=== PATIENT | female | born 1960 | race Caucasian/White ===

== ENCOUNTER 2016-12-28 19:21 | Emergency (ER) | payer BC ==
[~2016-12-28] VITALS: Ht 167.6 cm; Wt 88.4 kg
[~2016-12-28 19:21] MED LIST: AMOX TR-K CLV1 EAC4 PO; ASPIRIN81 M2 PO; CIPRO500 MG PO; FISH OIL SOFTG1 EAC2 PO; FLEXERIL10 MG PO; FLOMAX0.4 MG PO; LISINOPRIL10 MG PO; LISINOPRIL5 MG PO; LODINE400 MG PO; MOTRIN600 MG PO; MUCINEX1200 MG PO; MULTIVITAMIN1 EAC2 PO; NAPROSYN500 MG PO; NAPROXEN500 MG PO; OMEGA-3 FISH O1 EAC4 PO; ONE-A-DAY ESSE1 EAC1 PO; PROAIR RESPICL90 MCG IH; PROBIOTIC1 EAC1 PO; TURMERIC500 MG PO; ULTRAM50 MG PO; WELLBUTRIN SR150 MG PO
[2016-12-28 22:21] LABS: HEMATOCRIT 40.5 % (36.0-46.0); MCH 29.8 PG (29.0-34.0); MCHC 33.3 G/DL (30.0-36.0); MCV 89.4 FL (83-99); PLATELET COUNT 286 K/uL (156-360); RBC DIS.WIDTH-CV 12.7 % (11.8-14.6); RBC DIS.WIDTH-SD 41.9 % (39-53); RED BLOOD COUNT 4.53 M/uL (3.80-5.20); WHITE BLOOD COUNT 7.9 K/uL (4.1-10.2)
[2016-12-28 22:23] LABS: CHLORIDE 105 mEq/L (99-109); SODIUM 141 mEq/L (136-147)
[2016-12-28 22:25] LABS: GLUCOSE 95 mg/dL (70-99)
[2016-12-28 22:26] LABS: ANION GAP 10 MEQ/L (2-14)
[2016-12-28 22:29] LABS: GFR ESTIMATE (CALCULATED) > 59 mL/min/
[2016-12-28 22:30] LABS: UREA NITROGEN (BUN) 18 mg/dL (9-23)
[2016-12-28] MEDS ORDERED: NAPROXEN500 MG PO (22:31)
[2016-12-28 22:48] VITALS: BP 136/67
== END 2016-12-28 22:49 | disposition home or self-care (01) ==
LOC: RME 19:21 → EME 19:21 → RME 22:49
PROVIDERS: Physician Assistant
DX: M79.605 Pain in left leg (principal); R20.0 Anesthesia of skin; M79.672 Pain in left foot; I10 Essential (primary) hypertension; M41.9 Scoliosis, unspecified; Z79.82 Long term (current) use of aspirin; Z88.8 Allergy status to other drugs, medicaments and biological substances
CPT/HCPCS: 73630; 80048; 85027; 93971; 99281; 99283